=== PATIENT | male | born 1945 | race Caucasian/White ===

== ENCOUNTER 2017-04-12 11:37 | Emergency (ER) | payer MEDICARE, OTHER ==
[~2017-04-12] VITALS: Ht 165.1 cm; Wt 88.0 kg
[2017-04-12 11:44] VITALS: BP 150/85; PULSE 84; RESP 16; O2SAT 98
--- NOTE | 2017-04-12 12:08 | ED.REPORT ---
HPI-Dyspnea / Wheezing Date of Service April 12, 2017 ED Provider: Severino Esquivel MD A healthy 71 year old male with a history of emphysema presents to the ED complaining of SOB that began one week ago. His symptoms initially began as a productive cough with green sputum and secondary visual disturbances, general fatigue and rhinorrhea. As the week progressed, his fatigue worsened and her began to experience nocturnal diaphoresis and dyspnea upon exertion despite being fairly active regularly. Recent sick contacts include the patient's . Patent is a former smoker. He denies any chest pain, hemoptysis, abdominal pain , headache, nausea, or vomiting. He denies any current breathing medications. Nursing Notes Stated Complaint: SOB Chief Complaint: Respiratory Complaints Nursing Notes Reviewed: Yes Allergies: Uncoded Allergies: SULFA (Allergy, Unknown, 04/12/17) General Time Seen by MD: 12:00 Chief Complaint Shortness of breath Hx Obtained From: Patient Arrived By: Walk-in Sudden in Onset?: No Onset Occurred: Just prior to arrival Symptom Duration: Since onset Location: : None Associated with: Reports: Cough, Diaphoresis, Nasal congestion, Denies: Chest pain, Hemoptysis, Nausea, Vomiting Pertinent Negative: Pt denies other symptoms Recent Healthcare: No recent doctor visit, No recent hospitalization Past Medical History Past Medical History Emphysema; otherwise healthy Past Surgical History None reported Smoking History Former Smoker (Quit 10 years ago) Social History Other Social History: Good social support, From out of town ([place]) Ambulatory Status Independent Review of Systems Constitutional: Reports: Fatigue Respiratory: Reports: Dyspnea on exertion, Prod cough, green, Shortness of breath Cardiovascular: Denies: Chest pain Skin: Reports Diaphoresis (nocturnal ) Allergy / Immune: Reports: Rhinorrhea Complete sys rev & neg: except as marked. GI: Denies: Abdominal pain, Nausea, Vomiting Neurologic: Denies: Headache Physical Exam Initial Vital Signs Vital Signs (First) Date Time Temp Pulse Resp B/P Pulse Ox O2 Delivery O2 Flow Rate FiO2 04/12/17 11:44 36.4 84 16 150/85 98 Room Air Initial VS: Reviewed Head / Eyes: Atraumatic, Normocephalic, PERRL Extremities: Vascular intact, Neuro intact, No swelling, No tenderness Skin: Warm, Dry, No cyanosis Neurologic: Alert, Oriented, Nonfocal Psychiatric: Mood/affect normal, Behavior normal, Normal thought content General/Constitutional: Awake, Alert, No acute distress Neck: Atraumatic, Supple Respiratory / Chest: Atraumatic, Breath sounds NL, Breath sounds = bilat, No respiratory distress Cardiovascular: Heart rate NL, Regular rhythm, Heart sounds NL ENT: Atraumatic, Airway patent, Mucous membranes moist, Pharynx NL Interpretation & Diagnostics Lab Results Interpretation Result Diagram: 04/12/17 1315 04/12/17 1315 Test 04/12/17 13:15 04/12/17 13:30 White Blood Count 5.6th/mm3 (3.8-10.1) Red Blood Count 4.37mil/mm3 (4.40-5.80) Hemoglobin 13.7g/dL (13.8-17.2) Hematocrit 41.2% (41.0-50.0) Mean Corpuscular Volume 94.3fL (81-100) Mean Corpuscular Hemoglobin 31.4pg (27.0-35.0) Mean Corpuscular Hemoglobin Concent 33.3% (32.0-37.0) Red Cell Distribution Width 13.2% (12.3-15.4) Platelet Count 218bil/L (150-400) Neutrophils (%) (Auto) 66.1% (40-74) Lymphocytes (%) (Auto) 21.1% (14-46) Monocytes (%) (Auto) 10.4% (4-12) Eosinophils (%) (Auto) 1.8% (0-5) Basophils (%) (Auto) 0.4% (0-3) Sodium Level 138mEq/L (134-144) Potassium Level 4.4mEq/L (3.5-5.2) Chloride Level 103mEq/L (97-108) Carbon Dioxide Level 23mmol/L (18-29) Blood Urea Nitrogen 19mg/dL (8-27) Creatinine 1.08mg/dL (0.76-1.27) Estimat Glomerular Filtration Rate 72mL/min (>59) Glucose Level 90mg/dL (60-99) Calcium Level 8.9mg/dL (8.5-10.1) Total Bilirubin 0.3mg/dL (0.0-1.2) Aspartate Amino Transf (AST/SGOT) 23U/L (0-50) Alanine Aminotransferase (ALT/SGPT) 26U/L (0-44) Alkaline Phosphatase 57U/L (25-160) Total Protein 6.5g/dL (6.4-8.4) Albumin 3.7g/dL (3.4-5.0) Hold Sweeney Top Tube Received (Received) Hold Urine Received (Received) X-Ray Chest Interpretation Chest Xray Interpretation: IMPRESSION: No acute process. Dictated by: Sharonda Gatica M.D. on 04/12/2017 at 12:31 Interpretation / Wet Read by: Interpret - Radiologist Re-Eval/Medical Decision Re-Evaluation/Progress : Time of Eval: 13:31 Patient Status: Condition improved Re-Evaluation/Progress Note: Patient is rechecked and is resting comfortably. He is informed of his results. All questions about diagnosis are addressed. He understands and agrees with the intended treatment plan. Counseled Regarding: Diagnosis, Lab results, Need for follow-up, When/why to return to ED Discharge & Departure Impression: Primary Impression: Upper respiratory infection URI type: unspecified URI Qualified Code: J06.9 - Acute upper respiratory infection, unspecified Disposition: Home Discharge Condition All VS Reviewed: Yes Condition: Improved Patient Instructions: Upper Respiratory Infection (ED) Additional Instructions: Thank you for trusting us with your care this morning. Your emergency department results today including examination, lab work and chest X-ray are reassuring that there is no evidence of pneumonia at this time and your symptoms are likely due to a viral infection. Please take Motrin or Tylenol as directed for night sweats and take codeine cough syrup as directed for cough Schedule a follow up appointment with your primary care physician in the next 2- 3 days for a recheck. Please return to the emergency department if you develop any new or worsening symptoms including any fever, chills, vomiting, shortness of breath at rest, chest pain or any numbness/tingling. *Please do not drink, drive or use acetaminophen while taking this medication. Referrals: [facility] Scribe Attestation Portions of this note were transcribed by Angela Live. I, Dr. Esquivel personally performed the history, physical exam and medical decision-making; I reviewed and confirmed the accuracy of the information in the transcribed note. Signed by: Kip Chaney, 04/12/17 0800 Severino Esquivel MD April 12, 2017 12:08 ANGELA LIVE April 12, 2017 12:12
--- NOTE | 2017-04-12 12:33 | DRSVH ---
PROCEDURE: X-RAY CHEST, TWO VIEWS ([id number]) INDICATIONS: SHORTNESS OF BREATH/COUGH TECHNIQUE: 2 views of the chest were acquired. COMPARISON: [facility], , CHEST 2 VIEW, 03/21/2010, 17:28. FINDINGS: Surgical changes and devices: None. Lungs and pleura: No pleural effusions or pneumothorax. Lungs are clear. Mediastinum: Mediastinal contours are normal. Heart size is normal. Bones and chest wall: No suspicious bony abnormalities. Soft tissues appear unremarkable. IMPRESSION: No acute process. Dictated by: Sharonda Gatica M.D. on 04/12/2017 at 12:31 Approved by: Sharonda Gatica M.D. on 04/12/2017 at 12:31
[2017-04-12 13:22] LABS: BASOPHILS % (AUTO) 0.4 % (0-3); EOSINOPHILS % (AUTO) 1.8 % (0-5); MONOCYTES % (AUTO) 10.4 % (4-12); Mean Corpuscular Hemoglobin 31.4 pg (27.0-35.0); Mean Corpuscular Volume 94.3 fL (81-100); NEUTROPHILS % (AUTO) 66.1 % (40-74); Platelet Count 218 bil/L (150-400)
[2017-04-12] MEDS ORDERED: GUAI120L57 PO (13:53)
[2017-04-12 14:03] VITALS: BP 146/88; PULSE 67; RESP 18; O2SAT 97
== END 2017-04-12 14:04 | disposition home or self-care (01) ==
LOC: SED 11:37
DX: J06.9 Acute upper respiratory infection, unspecified (principal); J43.9 Emphysema, unspecified; Z87.891 Personal history of nicotine dependence; Z88.2 Allergy status to sulfonamides